=== PATIENT | male | born 1970 | race Caucasian/White ===

== ENCOUNTER 2018-09-26 10:12 | Emergency (ER) | payer OTHER ==
[~2018-09-26] VITALS: Ht 177.8 cm; Wt 54.4 kg
[~2018-09-26 10:12] MED LIST: AMLO5 PO; AMOX500 PO; ASPI81CH PO; ATOR40TA PO; AZIT250 PO; CEFD300 PO; CETI5 PO; CHLO25 PO; CIPDEXSU LEFTEAR; FLUO20 PO; FLUSAL2505 INH; FOLI400 PO; HYDACE5; HYDACE5 PO; LISHYD2025 PO; MELO7.5 PO; MIRT30 PO; NEOPOLHCSU OT; Norco 5-325 Ta1 EACH PO; QUET25 PO; QUET300 PO; RXOXYACE PO; RXTRAM50 PO; THIA100 PO; TRAM50 PO; Ultram50 MG PO; Ventolin/Prove6.7 GM INH; [UNRECOGNIZED DRUG - REMARK]
[2018-09-26] MEDS ORDERED: Amoxicillin500 MG PO (11:17)
[2018-09-26] MEDS ORDERED: ERYT1OIN RIGHTEYE (11:17)
== END 2018-09-26 11:23 | disposition home or self-care (01) ==
LOC: ER 10:12
DX: S05.01XA Injury of conjunctiva and corneal abrasion without foreign body, right eye, initial encounter (principal); H66.92 Otitis media, unspecified, left ear; X58.XXXA Exposure to other specified factors, initial encounter; Z91.030 Bee allergy status; Z79.899 Other long term (current) drug therapy; Z79.82 Long term (current) use of aspirin; I10 Essential (primary) hypertension; F41.9 Anxiety disorder, unspecified; J45.909 Unspecified asthma, uncomplicated; F17.210 Nicotine dependence, cigarettes, uncomplicated
CPT/HCPCS: 99283

== ENCOUNTER 2020-07-25 08:32 | Inpatient (IN) | payer OTHER ==
[~2020-07-25] VITALS: Ht 175.3 cm; Wt 55.6 kg
[~2020-07-25 08:32] MED LIST changes: +Amoxicillin500 MG PO; +ERYT1OIN RIGHTEYE
[2020-07-25 09:12] LABS: Hematocrit 41.4 % (37.0-53.0); Hemoglobin 14.5 g/dL (13.5-17.5); Mean Corpuscular HGB 36.1 pg (26.0-34.0); Mean Corpuscular Volume 103 fL (80-100); Mean Platelet Volume 9.5 fL (9.1-12.4); Platelet Count 519 K/mm3 (150-400); RDW Coefficient Variation 13.7 % (11.7-14.2); RDW Standard Deviation 52.7 fL (35.1-46.3); Red Blood Cell Count 4.02 M/mm3 (4.30-5.90)
[2020-07-25 09:16] LABS: Base Excess Venous -0.9 mmol/L; Bicarbonate Venous 24.1 mmol/L (24.0-30.0); PCO2 Venous 34.7 mmHg (38-42); PO2 Venous 96.4 mmHg (38-42); pH Blood Venous 7.44 (7.34-7.37)
[2020-07-25 09:18] LABS: White Blood Cell Count 51.78 K/mm3 (4.00-11.30)
[2020-07-25 09:33] LABS: Alanine Aminotransfer (ALT/SGP 10 U/L (12-78); Albumin, Blood 1.9 g/dL (3.4-5.0); Albumin/Globulin Ratio 0.4 (0.8-1.8); Alk Phos 90 U/L (50-136); Anion Gap 12 mmol/L (6-16); Aspartate Aminotrans (AST/SGOT 14 U/L (12-37); Bilirubin, Total 1.1 mg/dL (0.1-1.0); Blood Urea Nitrogen 14 mg/dL (8-24); Bun/Creatinine Ratio 17.1 (12.0-20.0); CO2, Blood 22 mmol/L (21-32); Calcium, Blood 8.9 mg/dL (8.5-10.1); Chloride, Blood 90 mmol/L (98-108); Creatinine, Blood 0.82 mg/dL (0.60-1.20); Globulin, Blood 4.5 g/dL (2.2-4.0); Glomerular Filtration Rate >60 (60-); Glucose, Blood 147 mg/dL (70-99); Potassium, Blood 4.4 mmol/L (3.5-5.5); Sodium, Blood 124 mmol/L (136-145); Total Protein, Blood 6.4 g/dL (6.4-8.2); Troponin I <0.015 ng/mL (0.000-0.040)
[2020-07-25 09:42] LABS: BAND PERCENT MAN 6 % (0-8); BASOPHILS PERCENT MAN 0 % (0-2); EOSINOPHILS PERCENT MAN 0 % (0-6); LYMPHOCYTES ABSOLUTE MAN 1.55 K/mm3 (0.84-5.20); LYMPHOCYTES PERCENT MAN 3 % (21-46); MONOCYTES ABSOLUTE MAN 1.55 K/mm3 (0.16-1.47); MONOCYTES PERCENT MAN 3 % (4-13); NEUTROPHILS ABSOLUTE MAN 48.67 K/mm3 (1.96-9.15); SEG NEUTROPHILS PERCENT MAN 88 % (41-73); TOTAL CELLS COUNTED 100
[2020-07-25 09:50] LABS: PCO2 Arterial 39.2 mmHg (35-45); PO2 Arterial 77.4 mmHg (80-100); pH Blood Arterial 7.41 (7.35-7.45)
[2020-07-25 09:54] LABS: Influenza A, PCR NEGATIVE (NEGATIVE); Influenza B, PCR NEGATIVE (NEGATIVE); Resp Syncytial Virus, PCR NEGATIVE (NEGATIVE); SARS-Cov-2 (COVID-19) PCR, MMC NEGATIVE (NEGATIVE)
[2020-07-25 13:24] LABS: Source, Urine Clean Catch
[2020-07-25 13:53] LABS: Appearance, Urine Clear (Clear); Bilirubin, Urine Neg (Neg); Blood, Urine 1+ (Neg); Color, Urine Yellow (P-Yellow); Glucose Qualitative, Urine Neg (Neg); Ketones, Urine Neg (Neg); Leukocyte Esterase, Urine Neg (Neg); Nitrite, Urine Neg (Neg); Protein, Urine 1+ (Neg); Urobilinogen, Urine NORM (Normal)
[2020-07-25 14:21] LABS: Bacteria Few /hpf; Red Blood Cells, Urine 0-2 /hpf (0-2); Squamous Epithelial Cells Few /hpf (Few)
[2020-07-25 14:55] LABS: Source, Urine Catheter
[2020-07-25 15:04] LABS: Appearance, Urine Hazy (Clear); Bilirubin, Urine Neg (Neg); Blood, Urine 2+ (Neg); Color, Urine Yellow (P-Yellow); Glucose Qualitative, Urine Neg (Neg); Ketones, Urine Neg (Neg); Leukocyte Esterase, Urine Neg (Neg); Nitrite, Urine Neg (Neg); Protein, Urine 1+ (Neg); Urobilinogen, Urine NORM (Normal)
[2020-07-25 15:53] LABS: Red Blood Cells, Urine 0-2 /hpf (0-2)
[2020-07-25 15:54] LABS: Amorphous Light (0-Heavy); Bacteria Few /hpf; Renal Epithelial Few /hpf (0-Rare); Squamous Epithelial Cells Few /hpf (Few)
[2020-07-25 15:55] LABS: Hyaline Casts 0-2 /lpf (0-2)
--- NOTE | 2020-07-25 17:09 | NUR ---
ADMIT/SHIFT SUMMARY PT ARRIVED TO ICU 4 AT 1400 VIA ER BED. PT HAS REMAINED AWAKE, ALERT, AND ORIENTED. PT ANSWERS QUESTIONS APPROPRIATELY. VITAL SIGNS STABLE. PT ON 3L O2 NC. PT WITH IMPROVEMENT IN BREATHING SINCE ARRIVAL. PT REPORTS EASE OF BREATHING SINCE CHEST TUBE PLACEMENT. CHEST TUBE TO LEFT LATERAL CHEST REMAINS C/D/I WITH PINK COLORED OUTPUT NOTED IN TUBING AT THIS TIME. CHEST TUBE WITH 20 CM WATER SEAL TO WALL SUCTION. TIDALING NOTED, NO AIR LEAK NOTED. PT WITH MINIMAL NEW OUTPUT NOTED SINCE ARRIVAL. PT WITH NS INFUSING AT 100 ML/HR AT THIS TIME AND NS TKO. ROJAS PLACED, UA SENT. ROJAS DRAINING CLEAR YELLOW URINE OUTPUT. PT REMAINS PALE/DUSKY IN COLOR. DR DON HAS SEEN PT AT BEDSIDE AND DISCUSSED PLAN OF CARE. WILL CONTINUE TO MONITOR AND REPORT OFF TO ONCOMING RN.
[2020-07-25 18:07] LABS: Automated BF RBC Count 0.008 M/mm3 (0-0); RBC Count, Body Fluid 8000 /mm3 (0-0)
[2020-07-25 18:21] LABS: Glucose, Body Fluid 34 mg/dL; Protein, Body Fluid 3.7 g/dL
[2020-07-25 18:32] LABS: Body Fluid WBC Count 18150 /mm3 (0-999)
[2020-07-25 19:07] LABS: Total Cell Count, Body Fluid 100
[2020-07-25 19:09] LABS: Appearance, Body Fluid Hazy (Clear)
[2020-07-25 19:10] LABS: Color, Body Fluid Yellow (None-Yellow)
--- NOTE | 2020-07-25 19:30 | NUR ---
CARE ASSUMED PT A&O, 2 L N/C, VITALS STABLE. PIV'S, NS INFUSING @ 100ML/HR. ROJAS IN PLACE DRAINING CL/YELLOW. CHEST TUBE IN PLACE LEFT SIDE, POSITIVE TIDELING NOTED IN TUBE DRAINING YELLOW, HOOKED TO SXN, BUBBLING IN CHAMBER, NO APEARENT AIR LEAK NOTED. CONTINUE TO ASSESS.
--- NOTE | 2020-07-26 00:24 | NUR ---
REASSESSMENT LOW BP'S, WAX MACHINE OPERATOR AND MD NOTIFIED, BOLUS STARTED PER MD. SEE MAR. CONTINUE ASSESSMENT AND CARE.
--- NOTE | 2020-07-26 01:29 | NUR ---
MD NOTIFIED POST 1ST 500 ML BOLUS, MAP 62, MD ORDER 2END 500 ML BOLUS OF NS. STARTED.
[2020-07-26 03:22] LABS: BASOPHILS ABSOLUTE AUTO 0.06 K/mm3 (0.00-0.23); BASOPHILS PERCENT AUTO 0 % (0-2); EOSINOPHILS PERCENT AUTO 0 % (0-6); Hematocrit 28.5 % (37.0-53.0); Hemoglobin 9.8 g/dL (13.5-17.5); IMMATURE GRAN ABSOLUTE AUTO 0.32 K/mm3 (0.00-0.10); IMMATURE GRAN PERCENT AUTO 1 % (0-1); LYMPHOCYTES PERCENT AUTO 2 % (21-46); MONOCYTES ABSOLUTE AUTO 0.88 K/mm3 (0.16-1.47); MONOCYTES PERCENT AUTO 2 % (4-13); Mean Corpuscular HGB 35.6 pg (26.0-34.0); Mean Corpuscular HGB Conc 34.4 g/dL (31.5-36.5); Mean Corpuscular Volume 104 fL (80-100); Mean Platelet Volume 9.5 fL (9.1-12.4); NEUTROPHILS ABSOLUTE AUTO 35.42 K/mm3 (1.96-9.15); NEUTROPHILS PERCENT AUTO 95 % (41-73); Platelet Count 393 K/mm3 (150-400); RDW Coefficient Variation 14.1 % (11.7-14.2); RDW Standard Deviation 54.4 fL (35.1-46.3); Red Blood Cell Count 2.75 M/mm3 (4.30-5.90); White Blood Cell Count 37.38 K/mm3 (4.00-11.30)
[2020-07-26 03:39] LABS: Magnesium, Blood 1.4 mg/dL (1.6-2.4)
[2020-07-26 03:41] LABS: Alanine Aminotransfer (ALT/SGP <6 U/L (12-78); Albumin, Blood 1.2 g/dL (3.4-5.0); Albumin/Globulin Ratio 0.4 (0.8-1.8); Alk Phos 62 U/L (50-136); Anion Gap 6 mmol/L (6-16); Aspartate Aminotrans (AST/SGOT 8 U/L (12-37); Bilirubin, Total 0.3 mg/dL (0.1-1.0); Blood Urea Nitrogen 12 mg/dL (8-24); Bun/Creatinine Ratio 19.3 (12.0-20.0); CO2, Blood 25 mmol/L (21-32); Calcium, Blood 7.3 mg/dL (8.5-10.1); Chloride, Blood 106 mmol/L (98-108); Creatinine, Blood 0.62 mg/dL (0.60-1.20); Glomerular Filtration Rate >60 (60-); Glucose, Blood 103 mg/dL (70-99); Potassium, Blood 4.2 mmol/L (3.5-5.5); Sodium, Blood 137 mmol/L (136-145); Total Protein, Blood 4.2 g/dL (6.4-8.2)
--- NOTE | 2020-07-26 04:12 | NUR ---
REASSESSED LEVO WAS STARTED FOR LOW MAPS, O2 WAS CHANGED TO OXYMIZER FOR LOW SATS (SEE FLOWSHEETS), BS: DECREASED WITH CRACKLES LEFT SIDE, RT CLEAR. PT REMAINS A&O. MD AND IT NETWORK ADMINISTRATOR AWARE OF CHANGES. CONTINUE ASSESSMENT AND CARE.
--- NOTE | 2020-07-26 06:42 | NUR ---
OVERNIGHT PT REMAINS A&O ROJAS WITH 2000 ML OUTPUT CHEST TUBE OUTPUT 250ML CHANGE OF O2 TO 4 L OXYMIZER 500ML NS BOLUS GIVEN X 2 FOR LOW MAP STARTED LEVOPHED FOR LOW MAPS, GOAL 65. CURRENTLY ON NS @ 100 ML/HR, LEVOFED @ 1 MCG/MIN. Q2 TURNS DONE WITH PILLOW SUPPORT.
--- NOTE | 2020-07-26 09:00 | NUR ---
ASSUMED CARE: REPORT RECEIVED FROM NOAH Daniels RN. ASSUMED CARE OF THIS PT AT APPROX 0700. ON ASSESSMENT, THE PT IS RESTING QUIETLY & AWAKENS EASILY TO VERBAL STIMULUS. HE IS ALERT/ORIENTED TO ALL AT THAT TIME. HE STS HAVING SOME MILD "ACHING" TO HIS LEFT SIDE AT CHEST TUBE INSERTION SITE & LOW BACK. LS ARE COARSE/DIM IN BASES. PT ON 4L OXYMIZER W/ O2 SATS > 92% ON AVG. HE HAS A MOIST COUGH BUT HAS BEEN UNABLE TO FULLY EXPECTORATE SPUTUM, PER HIS REPORT. CHEST TUBE IN PLACE TO L LATERAL CHEST WALL TO -20CM SUCTION, WATER NOTED TO BE BUBBLING/FLUCTUATING APPROPRIATELY IN CANISTER. MONITOR SHOWS ST W/ HR 100-110s, LEVOPHED INFUSING AT 2 MCG/MIN FOR HYPOTENSION. THE PT HAS NO GI COMPLAINTS & IS TOLERATING PO INTAKE WELL. TEMP ROJAS PATENT/ DRAINING YELLOW URINE. SKIN CONDITION OVERALL DIRTY W/ POOR HYGIENE NOTED, INTACT. WILL CONTINUE TO MONITOR & UPDATE NEEDED.
--- NOTE | 2020-07-26 10:30 | NUR ---
DR DON: PROVIDER HAS BEEN AT BEDSIDE TO EVAL PT THIS AM. ORDERS TO BE PLACED FOR CT CHEST W/ CONTRAST & ALBUMIN x3 DOSES. WILL TITRATE LEVOPHED OFF IF ABLE.
--- NOTE | 2020-07-26 12:05 | NUR ---
DR WOODALL: PROVIDER AT BEDSIDE TO EVAL PT. NO CHANGES AT THIS TIME.
--- NOTE | 2020-07-26 15:26 | NUR ---
CT SCAN: DR DON STS OKAY TO PLACE PT's CHEST TUBE TO WATER SEAL FOR TRANSPORT TO & FROM IMAGING FOR CT CHEST. CHEST TUBE PLACED TO WATER SEAL AT APPROX 1405 & PLACED BACK TO -20CM SUCTION ON RETURN TO PT's ROOM AT APPROX 1425. CHEST TUBE AGAIN SECURED TO FLOOR & THE PT HAS TOLERATED THIS WELL.
--- NOTE | 2020-07-26 19:30 | NUR ---
ASSUMED CARE OF PT, BEDSIDE REPORT RECEIVED. PT IS RESTING QUIETLY AND RECLINING IN BED WATCHING TV. DENIES N/V, DENIES CP/PRESSURE OTHER THAN RELATED TO CHEST TUBE INSERTION POINT WHICH IS RATED AT 7/10 SHARP STABBING PAIN WITH A COUGH BUT IS OTHERWISE WELL MANAGED AT THIS TIME. PT RATES BREATHING IMPROVED. SATS ARE MAINTAINING WITH OXYGEN VIA OXYMIZER AT 4 L/MIN, RESP RATE LOW 20S, STRONG COUGH NOTED, NO SPUTUM VISUALIZED AT THIS TIME, LUNGS COARSE AND DIM IN BASES BILAT, RUB IS NOTED TO LEFT UPPER LOBE AND FAINTLY OVER RIGHT UPPER LOBE. PLEURIVAC TO 20 CM WALL SUCTION, GOOD TIDALING NOTED, DRESSING IS SECURE AND TUBING SECURELY TAPED, NO CREPITUS IS NOTED SURROUNDING INSERTION DRESSING WELL THE REST OF THE LEFT CHEST WALL. PRESSURES ARE IMPROVED FROM PREVIOUS SHIFT, LEVOPHED IS ON STANDBY, SKIN PWD, BRISK CAP REFILL, NO EDEMA IS NOTED, SINUS TACH ON MONITOR, RATE 110-120S. ACTIVE BOWEL TONES X 4, ABD SOFT, NO GRIMACING/GUARDING WITH PALPATION. TEMP PROBE ROJAS IN PLACE, DRAINING CLEAR YELLOW URINE AT THIS TIME.
[2020-07-27 00:25] LABS: BASOPHILS ABSOLUTE AUTO 0.05 K/mm3 (0.00-0.23); BASOPHILS PERCENT AUTO 0 % (0-2); EOSINOPHILS PERCENT AUTO 0 % (0-6); Hematocrit 24.9 % (37.0-53.0); Hemoglobin 8.3 g/dL (13.5-17.5); IMMATURE GRAN ABSOLUTE AUTO 0.28 K/mm3 (0.00-0.10); IMMATURE GRAN PERCENT AUTO 1 % (0-1); LYMPHOCYTES ABSOLUTE AUTO 1.35 K/mm3 (0.84-5.20); LYMPHOCYTES PERCENT AUTO 5 % (21-46); MONOCYTES ABSOLUTE AUTO 0.98 K/mm3 (0.16-1.47); MONOCYTES PERCENT AUTO 4 % (4-13); Mean Corpuscular HGB 35.6 pg (26.0-34.0); Mean Corpuscular HGB Conc 33.3 g/dL (31.5-36.5); Mean Corpuscular Volume 107 fL (80-100); Mean Platelet Volume 9.3 fL (9.1-12.4); NEUTROPHILS ABSOLUTE AUTO 24.97 K/mm3 (1.96-9.15); NEUTROPHILS PERCENT AUTO 90 % (41-73); Platelet Count 346 K/mm3 (150-400); RDW Coefficient Variation 14.6 % (11.7-14.2); RDW Standard Deviation 57.1 fL (35.1-46.3); Red Blood Cell Count 2.33 M/mm3 (4.30-5.90); White Blood Cell Count 27.63 K/mm3 (4.00-11.30)
[2020-07-27 00:41] LABS: Albumin, Blood 2.2 g/dL (3.4-5.0); Anion Gap 5 mmol/L (6-16); Blood Urea Nitrogen 13 mg/dL (8-24); Bun/Creatinine Ratio 18.5 (12.0-20.0); CO2, Blood 25 mmol/L (21-32); Calcium, Blood 7.6 mg/dL (8.5-10.1); Chloride, Blood 111 mmol/L (98-108); Glomerular Filtration Rate >60 (60-); Glucose, Blood 121 mg/dL (70-99); Phosphorus, Blood 1.8 mg/dL (2.5-4.9); Potassium, Blood 3.9 mmol/L (3.5-5.5); Sodium, Blood 141 mmol/L (136-145)
--- NOTE | 2020-07-27 07:22 | NUR ---
ASSUMED CARE: PT RESTING IN BED AT THIS TIME. SINUS TACH ON TELE AT 116. 3L NC AND CHEST TUBE TO WALL SUCTION WITH BUBBLING NOTED. PT DENIES NEEDS OR CONCERNS AT THIS TIME.
--- NOTE | 2020-07-27 07:26 | NUR ---
PT RESTS QUIETLY THROUGHOUT SHIFT, CARE TAKEN TO SEPARATE HS MEDS FROM EACH OTHER WELL PAIN MEDICATION DUE TO RECENT USE OF PRESSORS. PRESSURES MAINTAINED THIS SHIFT, HEART RATE 120S BUT IMPROVES TO LOW 100S FOLLOWING LEVOPHED AT MIDNOC, RATE HAS INCREASED BACK TO 120S OF THIS TIME. RATE HAS INCREASED BRIEFLY TO 140S WITH INCREASED ACTIVITY HOWEVER QUICKLY SETTLES BACK TO BASELINE WITH RETURN TO REST. LUNGS CONTINUE TO INTERMITTENTLY HAVE A RUB PRESENT TO LEFT UPPER LOBE THAT ECHOS OVER TO RIGHT UPPER ANTERIOR CHEST. IMPROVED CLEARING OF SECRETIONS WITH COUGH PT HAS BEEN ENCOURAGED TO HAVE GOOD PULMONARY TOILET. HE TURNS AND REPOSITIONS HIMSELF INTERMITTENTLY AND WAS NOTED TO TURN HIMSELF BACK TO HIS LEFT SIDE WITHIN 20 MINUTS OF THIS RN ASSISTING HIM TO HIS RIGHT. OTHERWISE NO ACUTE CHANGES THIS SHIFT.
--- NOTE | 2020-07-27 12:52 | NUR ---
DR WOODALL: PROVIDER AT BEDSIDE TO EVAL PT. STATUS CHANGE TO PCU HAS BEEN DISCUSSED & DR WOODALL FEELS THIS IS APPROPRIATE, SHE WILL PLACE ORDERS. PT's TACHYCARDIA HAS ALSO BEEN DISCUSSED & DR WOODALL STS THAT SHE WILL REVIEW HIS CURRENT ORDERS & MAKE CHANGES OR PLACE NEW ORDERS NEEDED. NO OTHER CHANGES AT THIS TIME.
--- NOTE | 2020-07-27 17:54 | NUR ---
REPORT CALLED TO SHANNAN ROSADO. PT TRANSFERRED VIA BED WITH CHEST TUBE TO WATER SEAL AND O2 VIA NC AT 5L. NO ACUTE NEEDS OR CONCERNS WITH TRANSFER
--- NOTE | 2020-07-27 19:08 | NUR ---
SHIFT SUMMARY: PT TRANSFERRED FROM ICU TO PCU 2 VIA BED AT 1805 AND TRANSFERRED OVER USING SLIDE SHEET. ALERT AND ORIENTED X4. ON 6 L OXYMIZER SATING ABOVE 92%. TELE SHOWING SINUS. COMPLAINS OF LEFT SIDE PAIN WHERE CHEST TUBE IS. MEDICATED PER EMAR. CHEST TUBE CONNECTED TO WALL SUCTION. NO DRAINAGE IN LAST HOUR. ROJAS CATH IN PLACE DRAINING TO GRAVITY. LUNGS SOUNDING COURSE AND DIMINISHED IN THE BASES. VITAL SIGNS STABLE WITH ELEVATED BP. PT SITTING UP AND EATING DINNER IN BED. REPORTED OFF TO SHANNAN DINH.
[2020-07-27 23:57] LABS: BASOPHILS ABSOLUTE AUTO 0.09 K/mm3 (0.00-0.23); BASOPHILS PERCENT AUTO 0 % (0-2); EOSINOPHILS ABSOLUTE AUTO 0.03 K/mm3 (0.00-0.68); EOSINOPHILS PERCENT AUTO 0 % (0-6); Hematocrit 28.9 % (37.0-53.0); Hemoglobin 8.9 g/dL (13.5-17.5); IMMATURE GRAN PERCENT AUTO 6 % (0-1); LYMPHOCYTES ABSOLUTE AUTO 4.66 K/mm3 (0.84-5.20); LYMPHOCYTES PERCENT AUTO 16 % (21-46); MONOCYTES ABSOLUTE AUTO 1.53 K/mm3 (0.16-1.47); MONOCYTES PERCENT AUTO 5 % (4-13); Mean Corpuscular HGB 35.5 pg (26.0-34.0); Mean Corpuscular HGB Conc 30.8 g/dL (31.5-36.5); Mean Platelet Volume 9.6 fL (9.1-12.4); NEUTROPHILS ABSOLUTE AUTO 20.62 K/mm3 (1.96-9.15); NEUTROPHILS PERCENT AUTO 72 % (41-73); NRBC ABSOLUTE 0.02 K/mm3 (0.00-0.02); NRBC Auto 0.1 /100 WBC (0.0-0.2); Platelet Count 341 K/mm3 (150-400); RDW Coefficient Variation 14.4 % (11.7-14.2); RDW Standard Deviation 60.9 fL (35.1-46.3); Red Blood Cell Count 2.51 M/mm3 (4.30-5.90); White Blood Cell Count 28.53 K/mm3 (4.00-11.30)
[2020-07-27 23:59] LABS: Mean Corpuscular Volume 115 fL (80-100)
--- NOTE | 2020-07-28 | NUR ---
BEGINNING OF SHIFT - CODE 1900- THIS RN ASSUMED CARE OF PT. AXO. IN SR/ST. VSS. CHEST TUBE APPROPRIATELY BUBBLING, SOME DRAINAGE NOTED BUT MINIMAL THIS SHIFT. PT COUGHING / PRODUCING THICK YELLOW SPUTUM. LUNG SOUNDS COARSE/MOIST. PT SPO2 >94% ON 6L OXYMIZER. CHEST TUBING SECURED TO SKIN VIA ADHESIVE. PT DENYING PAIN AT THIS POINT. ROJAS PATENT AND DRAINING. 2008 - BEDTIME MEDS ADMINISTERED. PT RESTING IN BED. STATES HE WILL CALL WHEN NEEDING HELP. STATES BEING AWARE OF NEEDING TO BE BEDREST DUE TO CHEST TUBE. WAS NOT IMPULSIVE PER REPORT. 2154 - THIS RN COMPLETING ADMISSION IN SEPARATE ROOM. AID WAS TOLD PT CAME OFF TELEMETRY PRIOR TO THIS BUT WAS STUCK IN OTHER ROOM TOILETING AND REPLACING TELE. WHEN AID ENTERED ROOM, PT WAS FOUND ON THE GROUND UNRESPONSIVE. CODE BLUE CALLED. CPR INITIATED BY DESTINEE MCDUFFIE RN. POSSIBLE THAT CHEST TUBE PLACEMENT ALTERED AEB PURULENT FLUID NOTED ON FLOOR. 2156 DR GERONIMO TO ROOM WITH ER AND ICU STAFF. THIS RN ASSUMED COMPRESSIONS, DIOGO LOVE PLACED MONITOR PADS. 2157 1 EPINEPHRINE ADMINISTERED. 220 APPROPRIATE STAFF TO ROOM TO BE ABLE TO LIFT PT TO BED. BACK BOARD IN PLACE. LESS THEN 10 SECONDS FROM PICKING UP PT TO RESUMPTION OF COMPRESSIONS. 2201 DR. BIRD TO ROOM. 220 1 EPINEPHRINE ADMINISTERED. [address] OBRIEN AND RT. SUCCESFUL. 2203 - 1 AMP BICARB ADMINISTERED. 2206 1 EPINEPHRINE ADMINISTERED. 2208 PULSE CHECK POSITIVE FOR PULSE, MONITOR SHOWS BRADYCARDIC RHYTHM. RESUMED CPR WITH RHYTHM LOSS. 2210 1L NS BOLUS ADMINISTERED. 2210 1MG ATROPINE ADMINISTERED. 2211 2MG MAG SULFATE ADMINISTERED. 2210 1GM CALCIUM CHL ADMINISTERED. 2215 EPINEPHRINE GTT INITIATED. 221 CBG 125 2216 RHYTHM CHECK - ROSC - COMPRESSION CEASED. HR 150'S. CXR FOR CONFIRMATION OF INTUBATION. 2220 - PT TRANSFERRED TO ICU RM 10.
[2020-07-28 00:06] LABS: Anion Gap 13 mmol/L (6-16); Blood Urea Nitrogen 8 mg/dL (8-24); Bun/Creatinine Ratio 12.8 (12.0-20.0); CO2, Blood 22 mmol/L (21-32); Calcium, Blood 9.6 mg/dL (8.5-10.1); Chloride, Blood 103 mmol/L (98-108); Creatinine, Blood 0.63 mg/dL (0.60-1.20); Glomerular Filtration Rate >60 (60-); Glucose, Blood 165 mg/dL (70-99); Magnesium, Blood 2.9 mg/dL (1.6-2.4); Potassium, Blood 3.4 mmol/L (3.5-5.5); Sodium, Blood 138 mmol/L (136-145)
[2020-07-28 00:09] LABS: International Normalized Ratio 1.07; Prothrombin Time Results 11.4 Sec (9.7-11.5)
[2020-07-28 00:19] LABS: BAND PERCENT MAN 7 % (0-8); BASOPHILS PERCENT MAN 0 % (0-2); EOSINOPHILS ABSOLUTE MAN 0.28 K/mm3 (0.00-0.68); EOSINOPHILS PERCENT MAN 1 % (0-6); LYMPHOCYTES PERCENT MAN 13 % (21-46); METAMYELOCYTE ABSOLUTE MAN 0.57 K/mm3 (0.00-0.00); METAMYELOCYTE PERCENT MAN 2 % (0-0); MONOCYTES ABSOLUTE MAN 1.14 K/mm3 (0.16-1.47); MONOCYTES PERCENT MAN 4 % (4-13); NEUTROPHILS ABSOLUTE MAN 22.82 K/mm3 (1.96-9.15); SEG NEUTROPHILS PERCENT MAN 73 % (41-73); TOTAL CELLS COUNTED 100
[2020-07-28 01:41] LABS: PCO2 Arterial 40.9 mmHg (35-45); PO2 Arterial 65.1 mmHg (80-100); pH Blood Arterial 7.39 (7.35-7.45)
[2020-07-28 02:05] LABS: Magnesium, Blood 1.4 mg/dL (1.6-2.4)
[2020-07-28 02:06] LABS: Vancomycin, Trough 11.9 ug/mL (5.0-10.0)
[2020-07-28 02:26] LABS: Alanine Aminotransfer (ALT/SGP 42 U/L (12-78); Albumin, Blood 1.6 g/dL (3.4-5.0); Albumin/Globulin Ratio 0.6 (0.8-1.8); Alk Phos 103 U/L (50-136); Anion Gap 7 mmol/L (6-16); Aspartate Aminotrans (AST/SGOT 81 U/L (12-37); Bilirubin, Total 0.3 mg/dL (0.1-1.0); Blood Urea Nitrogen 8 mg/dL (8-24); Bun/Creatinine Ratio 15.1 (12.0-20.0); CO2, Blood 27 mmol/L (21-32); Calcium, Blood 7.4 mg/dL (8.5-10.1); Chloride, Blood 104 mmol/L (98-108); Creatinine, Blood 0.53 mg/dL (0.60-1.20); Globulin, Blood 2.6 g/dL (2.2-4.0); Glomerular Filtration Rate >60 (60-); Glucose, Blood 150 mg/dL (70-99); Potassium, Blood 3.1 mmol/L (3.5-5.5); Sodium, Blood 138 mmol/L (136-145); Total Protein, Blood 4.2 g/dL (6.4-8.2)
--- NOTE | 2020-07-28 07:40 | NUR ---
PT ARRIVES TO ICU POST CARDIAC ARREST IN PCU AT 2220 THIS SHIFT. PT HAS BEEN NONRESPONSIVE SINCE ARRIVAL, HE HAS HAD NO SEDATION, ATIVAN 2 MG IV ADMINSTERED TWICE FOR SEIZURELIKE ACTIVITY, EPISODES ARE INDUCED WITH NOXIOUS STIMULI, LAST LESS THAN 10 SECONDS IN DURATION, SEIZURE LIKE ACTIVITY CONSISTS OF A QUICK TWITCH TO HANDS AND FEET BILAT, SHOULERS JERK FORWARD AND EYES TWITCH MORE TOWARDS CEILING THAN THE FIXED UPWARD GAZE THAT IS NOW PRESENT AT BASELINE. PUPILS ARE 2 AND NONREACTIVE, NO EYE MOVEMENT IS NOTED WITH HEAD MOVEMENT. PT HAS NO COUGH OR GAG NOTED WITH ORAL CARE AND SUCTIONING, NO SWALLOW NOTED SINCE ARRIVAL TO ICU, VENT CONTINUES AT AC 16 WITHOUT SPONTANEOUS RESPIRATIONS, TV 450, PEEP 5.0, FIO2 HAS BEEN TITRATED DOWN TO 40% FROM 100% ON ARRIVAL, LUNGS REMAIN CLEAR AND EQUAL BILAT UPPER TO MID, DIM BASES, SATS MAINTAINING MID 90S THIS AM. CONTINUES IN SINUS RHYTHM, RATE IMPROVED TO 90S, EPINEPHRINE GTT EXCHANGED FOR LEVOPHED PER DR NEWTON'S ORDERS, LEVOPHED BRIEFLY TITRATED UP HIGH 14 MCG/MIN HOWEVER HAS BEEN TITRATED DOWN TO 2 MCG/MIN AFTER INITIATION OF VASOPRESSIN, FINGERS AND TOES CONTINUE TO BE DUSKY. EPINEPHRINE GTT WAS INFUSING VIA LEFT AC IV ON ARRIVAL FROM PCU, NOTED TO BE INFILTRATED WITHIN HALF AN HOUR OF ARRIVAL TO UNIT, MOVED TO RIGHT WRIST IV WHICH ALSO INFILTRATED, REGITINE WAS ORDERED AND ADMINISTERED TO BOTH SITES. CENTRAL LINE TO LEFT IJ PLACED BY DR NEWTON AND VERIFIED OK TO USE. PT'S FATHER CAME TO BEDSIDE THIS SHIFT AND AFTER SPEAKING WITH DR HICKEY, REQUESTED PT BE MADE DNR.
--- NOTE | 2020-07-28 08:00 | NUR ---
ASSUMED CARE BEDSIDE REPORT RECIEVED. PT IS INTUBATED, NOT SEDATED. PT WITH NO COUGH OR GAG NOTED. PUPILS FIXED, DOLLS EYES NOTED. PT WITHOUT ANY PURPOSFUL MOVEMENT. MYOCLONIC TWITCHING NOTED. VENT SETTINGS AC 16, TV 450, PEEP 5, FIO2 40%. MINIMAL ETT SECRETIONS NOTED, COPIOUS ORAL SECRETIONS NOTED. OGT IN PLACE TO LIS. CENTRAL LINE IN PLACE TO L IJ WITH LEVOPHED INFUSING AT 2 MCG/MIN, VASOPRESSIN 0.04 UNITS/MIN, AND NS TKO. ROJAS IN PLACE WITH YELLOW URINE OUTPUT NOTED. RECTAL TUBE IN PLACE WITH MINIMAL AMOUNT OF LIQUID YELLOW/BROWN OUTPUT NOTED. OLD CHEST TUBE SITE TO LEFT LATERAL CHEST WITH DRESSINGS C/D/I. WILL CONTINUE TO MONITOR.
--- NOTE | 2020-07-28 17:53 | NUR ---
SHIFT SUMMARY PT INTUBATED AND SEDATED ON PROPOFOL AT 30MCG/KG/MIN AT THIS TIME. MINIMAL MYOCLONIC ACTIVITY S/P ATIVAN AND PROPOFOL. PT CONTINUES TO HAVE NO COUGH OR GAG. NO PURPOSEFUL MOVEMENTS NOTED. VENT SETTINGS UNCHANGED AT AC 16/TV 450/PEEP 5/FIO2 35%. MINIMAL ETT SECRETIONS, COPIOUS ORAL SECRETIONS SUCTIONED. VITAL SIGNS STABLE. LEVOPHED TITRATED OFF THIS AM. CENTRAL LINE REMAINS C/D/I. OG TUBE REMAINS TO LIS. ROJAS DRAINING YELLOW URINE OUTPUT. RECTAL TUBE DRAINING LIQUID BROWN. FORMER CHEST TUBE SITE WITH DRESSING C/D/I. PT SISTER CAME TO VISIT THIS AFTERNOON. DR NEWTON AT BEDSIDE TO DISCUSS CARE PLAN. NO CHANGES TO CURRENT PLAN OF CARE. WILL CONTINUE TO MONITOR AND REPORT OFF TO ONCOMING RN.
--- NOTE | 2020-07-28 18:36 | NUR ---
CODE STATUS CHANGE PTS FATHER CALLED FOR UPDATE THIS EVENING. SPOKE WITH DR NEWTON ABOUT PT CONDITION AND CODE STATUS. PT FATHER REQUESTED PT TO BE CHANGED BACK TO A FULL CODE DESPITE CURRENT CONDITION. DISCUSSED PLAN OF CARE. DR NEWTON TO PUT IN NEW CODE STATUS ORDERS.
--- NOTE | 2020-07-28 19:00 | NUR ---
ASSUMED CARE NOTE: ASSUMED CARE OF PT AT 1900, RECEVIED REPORT FROM NOEMI CAMPBELL. PT IS UNRESPONSIVE. PT IS ON VENT AND SEDATION AT THIS TIME. COUGH/SWALLOW REFLEX PRESENT. NEGATIVE DOLL EYES RESPONSE. BILAT PUPILS RESPONSIVE TO LIGHT. NO PLANTER/CORNEAL REFLEX PRESENT. PT IS HAVING INVOLUNTARY MOVMENTS/TWITCHING NOTED. PT IS ON PROPOFOL PER NEDITA FOR SEZUIRE CONTROL. VENT SETTINGS AC16/450/5/30% SPO2 ABOVE 90% PT IS HAVING MODERATE AMOUNTS OF SECRETIONS VIA ETT TUBE, CLEAR STRINGY. COPIOUS AMOUNTS OF ORAL SECREATIONS. OGT TO LIS, GREEN/BROWN DRAINAGE NOTED. PT IS IN SINUS TACH WITH HR IN THE 100-110. BP NOTED. RJOAS PATENT, DRAINING CLEAR YELLOW URINE TO GRAVITY. RECTAL TUBE IN PLACE, DRAINING BROWN LIQUID STOOL. BED AT LOWEST LEVEL. WILL CONTINUE TO MONITOR PT T/O SHIFT.
[2020-07-28 21:38] LABS: Magnesium, Blood 1.7 mg/dL (1.6-2.4); Potassium, Blood 3.5 mmol/L (3.5-5.5)
[2020-07-29 01:29] LABS: Vancomycin, Trough 31.5 ug/mL (5.0-10.0)
[2020-07-29 04:11] LABS: BASOPHILS ABSOLUTE AUTO 0.03 K/mm3 (0.00-0.23); BASOPHILS PERCENT AUTO 0 % (0-2); EOSINOPHILS ABSOLUTE AUTO 0.08 K/mm3 (0.00-0.68); EOSINOPHILS PERCENT AUTO 0 % (0-6); Hematocrit 27.1 % (37.0-53.0); Hemoglobin 9.1 g/dL (13.5-17.5); IMMATURE GRAN ABSOLUTE AUTO 0.16 K/mm3 (0.00-0.10); IMMATURE GRAN PERCENT AUTO 1 % (0-1); LYMPHOCYTES ABSOLUTE AUTO 1.62 K/mm3 (0.84-5.20); LYMPHOCYTES PERCENT AUTO 8 % (21-46); MONOCYTES ABSOLUTE AUTO 1.46 K/mm3 (0.16-1.47); MONOCYTES PERCENT AUTO 7 % (4-13); Mean Corpuscular HGB 35.4 pg (26.0-34.0); Mean Corpuscular HGB Conc 33.6 g/dL (31.5-36.5); Mean Platelet Volume 9.5 fL (9.1-12.4); NEUTROPHILS ABSOLUTE AUTO 18.14 K/mm3 (1.96-9.15); NEUTROPHILS PERCENT AUTO 85 % (41-73); Platelet Count 317 K/mm3 (150-400); RDW Coefficient Variation 14.7 % (11.7-14.2); RDW Standard Deviation 57.4 fL (35.1-46.3); Red Blood Cell Count 2.57 M/mm3 (4.30-5.90); White Blood Cell Count 21.49 K/mm3 (4.00-11.30)
[2020-07-29 04:12] LABS: Mean Corpuscular Volume 105 fL (80-100)
[2020-07-29 04:33] LABS: Anion Gap 9 mmol/L (6-16); Blood Urea Nitrogen 13 mg/dL (8-24); CO2, Blood 24 mmol/L (21-32); Calcium, Blood 7.4 mg/dL (8.5-10.1); Chloride, Blood 105 mmol/L (98-108); Creatinine, Blood 1.18 mg/dL (0.60-1.20); Glomerular Filtration Rate >60 (60-); Glucose, Blood 82 mg/dL (70-99); Magnesium, Blood 1.8 mg/dL (1.6-2.4); Phosphorus, Blood 3.4 mg/dL (2.5-4.9); Potassium, Blood 3.4 mmol/L (3.5-5.5); Sodium, Blood 138 mmol/L (136-145)
--- NOTE | 2020-07-29 04:40 | NUR ---
UPDATE: PROPOFOL TITRATED DOWN TO 10MCG/KG/MIN. PT HAS CORNEAL/GAG/COUGH REFLEX. PUPILS REACTIVE TO LIGHT. PT GRIMICING WITH ORAL CARE. PROPFOL TITRATED UP TO 20MCG/KG/MIN OVER THE NEXT 15 MINUTES. NO SIGNS OF SEZUIRE ACTIVITY . NO INVOLUNTARY MOVMENTS NOTED. PT NOT FOLLOWING COMMANDS, UNABLE TO MOVE EXTREMITIES. RESTRAINTS PLACED A PERCAUTION , SINCE PT IS HAVING SOME REFLEXS AND TO PREVENT SELF EXTUBATION.
[2020-07-29 05:31] LABS: PCO2 Arterial 31.4 mmHg (35-45); PO2 Arterial 61.1 mmHg (80-100); pH Blood Arterial 7.47 (7.35-7.45)
--- NOTE | 2020-07-29 06:22 | NUR ---
SHIFT SUMMARY: SEE PREVIOUS NOTES. PT CONTINUES TO HAVE GAG/COUGH/CORNEAL/SWALLOW REFLEXES. BILAT PUPILS CONTINUE TO BE REACTIVE TO LIGHT. PT CONTINUES TO BE ON PROPOFOL AT 20MCG/KG/MIN. NO INVOLUNTARY MOVMENTS/TWITCHING NOTED. BILAT SWR IN PLACE, SINCE PT REFLEXES ARE PRESENT. PT CONTINUES TO BE ON SAME VENT SETTINGS AC16/450/5/35% MODERATE AMOUNTS OF SECRETIONS NOTED VIA ETT. COPIOUS AMOUNTS OF ORAL SECRETIONS NOTED. OGT TO LIS WITH MINIMAL OUTPUT. PT HAS BEEN IN SINUS RYTHYM TO SINUS TACH HR BETWEEN 90-110. BP SOFT AT TIMES, HOWEVER MAP ABOVE 65. ROJAS PATENT DRAINING TO GRAVITY CLEAR YELLOW URINE, 200ML OUTPUT THIS SHIFT. RECTAL TUBE IN PLACE, DRAINED 50ML OF BROWN LIQUID STOOL. WILL CONTINUE TO MONITOR PT UNTIL REPORT IS GIVEN TO ONCOMING SHIFT.
--- NOTE | 2020-07-29 09:59 | NUR ---
ASSUMED CARE RECEIVED REPORT FROM ATHLETIC EVENTS SCORER RN. PT REMAINS INTUBATED VENT AT AC 16/TV 450/PEEP 5/ FIO2 30%. SEDATED WITH PROPOFOL AT 20. VITAL SIGNS STABLE. PT DOES NOT MOVE EXTREMETIES TO NOXIOUS STIMULI. COUGH AND GAG PRESENT WITH DEEP SUCTION. PUPILS ARE RESPONSIVE THOUGH POSITVIE DOLL'S EYES. OG TUBE IN PLACE TO LIS. CENTRAL LINE C/D/I. ROJAS PATENT AND DRAINING MINIMAL CLEAR YELLOW OUTPUT. RECTAL TUBE WITH LIQUID BROWN OUTPUT. SBW RESTRAINTS IN PLACE. WILL CONTINUE TO MONITOR.
--- NOTE | 2020-07-29 15:41 | NUR ---
FAMILY UPDATE NO ACUTE CHANGES AT THIS TIME. PT FATHER AND SISTER AT BEDSIDE TO VISIT. UPDATED TO PLAN OF CARE AND CURRENT CONDITION. DR NEWTON AT BEDSIDE TO UPDATE FAMILY, FAMILY STATES THEY WANT TO CONTINUE CURRENT TREATMENT AT THIS TIME, BUT ARE THINKING ABOUT TRANSITIONING TO COMFORT CARE IN THE NEXT COMING DAYS. WILL CONTINUE TO MONITOR.
--- NOTE | 2020-07-29 18:11 | NUR ---
DOCUMENTATION REVIEW I AGREE WITH THE SHIFT ASSESSMENT AND ALL OTHER DOCUMENTATION FOR THIS PATIENT DONE BY JAVON, HAIR SPECIALIST.
--- NOTE | 2020-07-29 18:37 | NUR ---
SHIFT SUMMARY: PT REMAINS INTUBATED AND SEDATED AT THIS TIME. VENT AT AC 16/TV 450/FIO2 30%/PEE 5. PROPOFOL AT 20. RECEIVING TUBE FEEDING 20ML/HR VIA OG TUBE. CENTRAL LINE PATENT AND DRESSING C/D/I. POSITIVE DOLLS EYES THOUGH BRISK PUPILLARY RESPONSE. GAG AND COUGH PRESENT WITH DEEP SUCTION. MINIMAL SECRETIONS VIA ETT. COPIOUS AMOUNTS OF ORAL SECRETIONS. ROJAS PATENT AND DRAINING YELLOW CLEAR URINE. RECTAL RUBE PATENT AND DRAINING LIQUID BROWN. SBW RESTRAINTS REMAIN IN PLACE. VITAL SIGNS REMAIN STABLE. WILL CONTINUE TO MONITOR.
--- NOTE | 2020-07-29 19:00 | NUR ---
ASSUMED CARE NOTE: ASSUMED CARE OF PT AT 1900, RECEVIED REPORT FROM NOEMI CAMPBELL. PT CONTINUES TO BE UNRESPONSIVE. GAG/COUGH/CORNEAL REFLEX PRESENT. BRISK RESPONSE TO BOTH PUPILS. NEGATIVE DOLL'S EYES REFLEX PRESENT, EYES MOVE IN THE SAME DIRECTION THE HEAD. PT IS ON PROPOFOL FOR SEDATION 20MCG/KG/MIN. PT ON VENT WITH SETTINGS AC16/450/5/30% , SPO2 ABOVE 90% MODERATE AMOUNTS OF SECRETIONS NOTED VIA ETT. MODERATE AMOUNTS OF ORAL THIN CLEAR SECRETIONS NOTED. PT IN SINUS TACH WITH HR IN THE 130'S , BP STABLE. OGT TO TF RUNNING AT 20ML/HR, WILL INCREASE TO GOAL RATE AT 30ML/HR AT 1999. ABDOMEN IS SOFT, RECTAL TUBE IN PLACE, DRAINING DARK BROWN LIQUID. WILL CONTINUE TO MONITOR PT T/O SHIFT
[2020-07-30 03:45] LABS: Anion Gap 9 mmol/L (6-16); Blood Urea Nitrogen 20 mg/dL (8-24); Bun/Creatinine Ratio 9.4 (12.0-20.0); CO2, Blood 24 mmol/L (21-32); Calcium, Blood 7.5 mg/dL (8.5-10.1); Chloride, Blood 107 mmol/L (98-108); Creatinine, Blood 2.13 mg/dL (0.60-1.20); Dilantin (Phenytoin), Total 8.3 ug/mL (10.0-20.0); Glomerular Filtration Rate 35 (60-); Glucose, Blood 163 mg/dL (70-99); Magnesium, Blood 1.9 mg/dL (1.6-2.4); Phosphorus, Blood 3.5 mg/dL (2.5-4.9); Potassium, Blood 3.7 mmol/L (3.5-5.5); Sodium, Blood 140 mmol/L (136-145)
--- NOTE | 2020-07-30 06:17 | NUR ---
SHIFT SUMMARY : NO SIGNIFICANT CHANGES T/O SHIFT. PT CONTINUES TO HAVE GAG/COUGH/CORNEAL REFLEXES. NEGATIVE DOLL'S EYES RESPONSE. PT CONTINUES TO BE ON PROPOFOL AT 25MCG/KG/HR PER NEDITA TO PREVENT SEZUIRES AND VENT TOLERANCE. VENT SETTINGS AC16/450/5/30%, SPO2 ABOVE 90% MODERATE AMOUNTS OF THIN WHITE SECRETIONS VIA ETT. MODERATE AMOUNTS OF ORAL SECRETIONS NOTED. PT IS SIT WITH HR IN THE 120-130'S. BP STABLE, WHEN MOVED OR REPOSTIONED SBP IS THE 150'S. TUBE FEED VIA OGT RUNNING AT GOAL 30ML/HR, NO RESIDUAL NOTED FOR 2000, 0000, 0400. ROJAS PATENT, DRAINING TO GRAVITY, LOW URINE OUTPUT NOTED. WILL CONTINUE TO MONITOR PT UNTIL REPORT IS GIVEN TO ONCOMING SHIFT.
--- NOTE | 2020-07-30 17:33 | NUR ---
Spoke with Bedside SHANNAN Rudolph and discussed case. Family has elected to withdraw care and would like to focus on comfort care for Pt. Pt resting in bed and is non responsive. Pt's dad Shabbir and Pt's sister Juliana at bedside. Offered therapeutic listening and answered questions. Shabbir reports Pt would not want to continue in his current condition. He states if his quality of life is diminished Pt would not want his life prolonged. Educated on comfort care philosophy with V/U made by both Shabbir and Juliana. Shabbir reports experiencing end of life when his last year. Juliana reports losing her new born baby as well. Offered emotional support and validated concerns. Educated on possible S/S Pt may experience. Dr Fengh in to confirm decision and will place comfort care orders. SHANNAN Rudolph pre-medicates Pt for comfort and Pt is extubated. Pt appears comfortable at this time with no S/S of distress. Continued supportive visit. Family expresses appreciation and reports no other concerns at this time. Palliative Care will remain available for symptom management and supportive visits.
--- NOTE | 2020-07-30 18:10 | NUR ---
FATHER AND SISTER CAM IN AND STARTED THE COMFORT CARE PROCESS WITH PALIATIVE CARE. PT EXTUBATED AT 1710, 5 MG MORPHINE GIVEN, FENTANYL PATCH PLACED, AND SCOPOLAMINE PATCH PLACED BEHIND LEFT EAR. NASAL TRUMPET PLACED TO REDUCE SNORING SOUND. FAMILY AT BEDSIDE
--- NOTE | 2020-07-30 18:17 | NUR ---
Late entry regarding Mr. Mayer. I had entered his room at approximately 2150 on Monday July 27, 2020. I noticed the patient was not in his bed. I could see the IV reaching over to the other side of the bed, that's when I found him laying on the floor on his stomach with his head laying on a pillow. I tried verbalizing to the patient, I got no response. I immediately called his RN Mega, who stated Bessy our charge nurse was on the way. I tried shaking the patients arm, at this point Bessy came into the room and assessed the situation and called for a code blue.
--- NOTE | 2020-07-30 23:11 | NUR ---
ASSUME CARE AT 1900 PT SISTER AT BEDSIDE AT SHIFT CHANGE; SHE OBTAINED PT WALLET AND LEFT THE REST OF PT PERSONAL BELONGINGS. PT LYING IN BED AND NOT RESPONSIVE TO VERBAL OR PAINFUL STIMULI, OCCATIONAL GAG AND COUGH NOTED. SHALLOW BREATHING AND AIR HUNGER NOTED, PRN ROXANOL GIVEN AND HELPFUL. LT LATERAL CHEST DRESSING C/D/I. ROJAS AND RECTAL TUBE IN PLACE AND DRAINING TO GRAVITY. LT IJ DRESSING INTACT. PT APPEARS COMFORTABLE AND RESTING. WILL CONT TO MONITOR.
--- NOTE | 2020-07-31 06:29 | NUR ---
END OF SHIFT SUMMARY PT RESTING COMFORTABLY ALL NIGHT. SOME EPISODES OF AIR HUNGER, PRN'S AVAILABLE AND GIVEN, SEE EMAR. NO RESPONSVE FROM VERBAL OR PAINFUL STIMULI. ROJAS AND RECTAL TUBE IN PLACE AND DRAINING TO GRAVITY. LT IJ DRESSING IN PLACE. LT LATERAL CHEST WALL DRESSING C/D/I. WILL REPORT TO AM RN WHEN AVAILABLE.
--- NOTE | 2020-07-31 07:15 | NUR ---
ASSUMED CARE PATIENT COMFORT CARE, DNR. PATIENT BREATHING IN THE 30'S WITH HEART RATE IN THE 120'S. NON RESPONSIVE TO NOXIOUS STIMULI, PUPILS NON REACTIVE. BP'S STABLE AT THIS TIME. WILL CONTINUE TO MONITOR.
--- NOTE | 2020-07-31 11:45 | NUR ---
PATIENT NON RESPONSIVE TO NOXIOUS STIMULI, PUPILS UNREACTIVE. BREATHING IN THE 40'S, WILL MEDICATE WITH MORPHINE.
--- NOTE | 2020-07-31 12:13 | NUR ---
PATIENT'S HEART HAS STOPPED, AND BREATHING HAS CEASED. SUNIL AND TIAGO RN CONFIRM NO PULSE, NO BREATHING, NO HEART RATE. PRONOUNCED AT 12:13. FAMILY CALLED AND DONOR LINE CALLED. HOME TO BE CALLED AFTER DONOR LINE CALLS BACK.
--- NOTE | 2020-07-31 15:28 | NUR ---
[facility] PICKED UP PT, CARRIE Trotter FROM THE HOME PICKED UP THE PT AT 1310. SISTER OF PATIENT (SANJU) PICKED UP HIS BELONGINGS.
== END 2020-07-31 12:13 | DRG 871 ==
LOC: ER 08:32 → ICUE 13:23 → ICUW 13:23 → ICUE 13:51 → PCU 07-27 17:43 → ICUW 07-27 22:21
PROVIDERS: Internal Medicine Critical Care Medicine; Pharmacist; Physician Assistant; ADMIT Internal Medicine
PROC: 3E02340 Introduction of Influenza Vaccine into Muscle, Percutaneous Approach (ICD-10-PCS; 2020-07-25)
PROC: 0W9B30Z Drainage of Left Pleural Cavity with Drainage Device, Percutaneous Approach (ICD-10-PCS; 2020-07-25)
PROC: 5A12012 Performance of Cardiac Output, Single, Manual (ICD-10-PCS; principal; 2020-07-27)
PROC: 02HV33Z Insertion of Infusion Device into Superior Vena Cava, Percutaneous Approach (ICD-10-PCS; 2020-07-27)
PROC: 3E043XZ Introduction of Vasopressor into Central Vein, Percutaneous Approach (ICD-10-PCS; 2020-07-27)
PROC: 0BH17EZ Insertion of Endotracheal Airway into Trachea, Via Natural or Artificial Opening (ICD-10-PCS; 2020-07-27)
PROC: 5A1945Z Respiratory Ventilation, 24-96 Consecutive Hours (ICD-10-PCS; 2020-07-27)
DX: A40.8 Other streptococcal sepsis (principal); E43 Unspecified severe protein-calorie malnutrition; R40.20 Unspecified coma; N17.0 Acute kidney failure with tubular necrosis; J15.4 Pneumonia due to other streptococci; R65.21 Severe sepsis with septic shock; J96.01 Acute respiratory failure with hypoxia; Z23 Encounter for immunization; Z68.1 Body mass index [BMI] 19.9 or less, adult; R64 Cachexia; E22.2 Syndrome of inappropriate secretion of antidiuretic hormone; J93.9 Pneumothorax, unspecified; G93.1 Anoxic brain damage, not elsewhere classified; Z66 Do not resuscitate; Z51.5 Encounter for palliative care; Z79.82 Long term (current) use of aspirin; F17.210 Nicotine dependence, cigarettes, uncomplicated; Z20.822 Contact with and (suspected) exposure to COVID-19; F41.9 Anxiety disorder, unspecified; J43.9 Emphysema, unspecified; I10 Essential (primary) hypertension; E87.6 Hypokalemia; E83.42 Hypomagnesemia; G40.409 Other generalized epilepsy and epileptic syndromes, not intractable, without status epilepticus; F10.21 Alcohol dependence, in remission; G40.401 Other generalized epilepsy and epileptic syndromes, not intractable, with status epilepticus; I46.9 Cardiac arrest, cause unspecified; Z78.1 Physical restraint status
CPT/HCPCS: 0241U; 31500; 32551; 36415; 36556; 36600; 51703; 70450; 71045; 71260; 74177; 80048; 80053; 80069; 80185; 80202; 81001; 82803; 82945; 82947; 83605; 83690; 83735; 83880; 84100; 84132; 84157; 84443; 84484; 85025; 85610; 85651; 85730; 87040; 87070; 87075; 87086; 87205; 89051; 92950; 93005; 93010; 94002; 94003; 94644; 95819; 96365-59; 96366-59; 96367-59; 96375-59; 96376-59; 99285-25; A9270; C1751; C9113; J0171; J0456; J0461; J0696; J1650; J1953; J2060; J2270; J2405; J2543; J2704; J2760; J2930; J3010; J3370; J3411; J3475; J3480; J7030; J7040; J7042; J7050; J7060; P9046; Q2009; Q2038; Q9967